=== PATIENT | male | born 2005 | race Two or more races ===

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

== ENCOUNTER 2023-01-12 15:34 | Emergency (ER) | payer OTHER ==
[2023-01-12 15:40] VITALS: BP 129/75; PULSE 79; RESP 20; TEMP 98.5; BMI 27.4
[2023-01-12] MEDS ORDERED: IBUPROFEN 600 MG TABLET (FP) PO ONE ×2 (16:36→16:37)
== END 2023-01-12 18:43 | disposition home or self-care (01) ==
LOC: JERFT 15:34
PROC: 2W3CX1Z Immobilization of Right Lower Arm using Splint (ICD-10-PCS; principal; 2023-01-12)
DX: M79.644 Pain in right finger(s) (principal)
CPT/HCPCS: 29125; 73140-TC-RT-FY; 99283-25